=== PATIENT | female | born 1980 | race African-American/Black ===

== ENCOUNTER 2020-02-09 22:55 | Emergency (ER) | payer SELFPAY ==
[~2020-02-09] VITALS: Ht 170.2 cm; Wt 115.0 kg
[~2020-02-09 22:55] MED LIST: LITH20CA
[2020-02-09 23:37] LABS: CLARITY URINE CLOUDY (CLEAR); COLOR URINE DARK YELLOW (YELLOW); KETONES URINE TRACE (NEGATIVE); LEUKOCYTE ESTERASE URINE 2+ (NEGATIVE); NITRITE URINE POSITIVE (NEGATIVE); OCCULT BLOOD URINE 3+ (NEGATIVE); PH URINE 5.5 (4.5-8.0); PROTEIN URINE 2+ (NEGATIVE)
[2020-02-10 00:14] VITALS: BP 145/79
== END 2020-02-10 00:15 | disposition home or self-care (01) ==
LOC: ER 22:55
DX: N39.0 Urinary tract infection, site not specified (principal); F10.20 Alcohol dependence, uncomplicated; F19.10 Other psychoactive substance abuse, uncomplicated; Z98.890 Other specified postprocedural states; Z79.899 Other long term (current) drug therapy; Y90.9 Presence of alcohol in blood, level not specified
CPT/HCPCS: 81003; 81025; 87077; 87186; 99283